=== PATIENT | female | born 1990 | race Caucasian/White ===

== ENCOUNTER 2018-05-09 12:30 | Observation (INO) | payer SELFPAY ==
[~2018-05-09 12:30] MED LIST: PRENATAL1 TA3 PO
[2018-05-10] VITALS (9 sets, daily range): BP systolic 113–140; BP diastolic 58–88; PULSE 65–91; TEMP 97.6–98.6
[2018-05-10] MEDS ORDERED: CARAFATE 1GM1 G PO (12:12)
[2018-05-10] MEDS ORDERED: PROTONIX 40MG T40 MG (12:13)
--- NOTE | 2018-05-10 12:15 | NUR ---
to surgery per bed, report called to Amado Pelletier CRNA
--- NOTE | 2018-05-10 13:55 | NUR ---
SW met with patient and about discharge planning. Patient lives independently at home with her . Patient's PCP is Martha Gipson and she obtains prescriptions from [facility]. Patient does not use any home health services or DME. She does not have a DPOA and is not interested in that at this time. Patient is also private pay. [facility] with financial will meet with her. POOL does not anticipate any discharge needs.
[2018-05-10 15:13] LABS: ALANINE AMINOTRANSFERASE 311 U/L (9-52); ALBUMIN 3.8 gm/dL (3.5-5.0); ALKALINE PHOSPHATASE 146 U/L (50-136); ANION GAP 9 mmol/L (7-16); AST,SGOT 129 U/L (15-37); BILIRUBIN,TOTAL 3.6 mg/dL (0.0-1.0); BLOOD UREA NITROGEN 15 mg/dL (7-17); CARBON DIOXIDE 23 mmol/L (22-30); CHLORIDE 107 mmol/L (98-107); CREATININE, serum 0.87 mg/dL (0.52-1.25); GLUCOSE 105 mg/dL (74-106); SODIUM 139 mmol/L (137-145); TOTAL PROTEIN 7.2 gm/dL (6.4-8.2)
--- NOTE | 2018-05-10 15:40 | NUR ---
returned to room from PACU per bed, awake and alert but sleepy, IV infusing per gravity, O2 on at 1L/NC and O2 sat 97%, 5 robotic ports CD&I with bandaids, denies needs, family at bedside
--- NOTE | 2018-05-10 16:00 | NUR ---
O2 sat 98% on 1L, O2 off and will monitor
--- NOTE | 2018-05-10 16:15 | NUR ---
is awake now and talking with family, asking for something to eat, provided water and tolerates well and provided applesauce and jello, if tolerates will instruct on ordering regular food, instructed to call when she is ready to get up to bathroom
--- NOTE | 2018-05-10 16:30 | NUR ---
had jello and applesauce and tolerated well, assisted up to bathroom and voided qs, is currently on her menses, back to bed
--- NOTE | 2018-05-10 17:30 | NUR ---
had regular diet and tolerated well, appears to doze at this time
--- NOTE | 2018-05-10 18:40 | NUR ---
resting in bed, bedside shift report given to MERT Lindsey
--- NOTE | 2018-05-10 19:30 | NUR ---
Pt. sitting up in bed with mother at bedside. Pt. is A&OX3, assessment complete. INT to rt. AC patent. Five abd. lap sites noted with nicolette CDI. Pt. has reached discharge criteria. Scripts given to pt. by previous nurse. Education, health summary, discharge instructions, and medication information given to pt. Pt.'s questions answered. INT discontinued from RT. ac. Pt. waiting for to return. Will call when ready to leave.
--- NOTE | 2018-05-10 20:00 | NUR ---
Pt.'s has arrived. Pt. escorted out by wheel chair.
== END 2018-05-10 20:00 | disposition home or self-care (01) ==
LOC: JCC 12:30
PROVIDERS: ADMIT Internal Medicine Gastroenterology
DX: K80.12 Calculus of gallbladder with acute and chronic cholecystitis without obstruction (principal); F41.9 Anxiety disorder, unspecified; F32.9 Major depressive disorder, single episode, unspecified; Z87.11 Personal history of peptic ulcer disease; Z79.899 Other long term (current) drug therapy; E66.01 Morbid (severe) obesity due to excess calories
CPT/HCPCS: A9284; C1769; G0378; G0379; J1170; J2250; J2405; J2550; J2704; J3010; J7030; Q9967